=== PATIENT | male | born 1935 | race Caucasian/White ===

== ENCOUNTER → 2017-10-19 | Outpatient (CLI) | payer MEDICARE, OTHER ==
--- NOTE | 2017-10-25 09:37 | Diagnostic Imaging Report ---
History: Neck pain, muscle spasms, mid cervical disc disorder with radiculopathy Comparison studies: None Technique: Sagittal T1, T2 and IR, axial T2 and axial gradient echo Intravenous contrast: None Findings: Alignment: Mild straightening is seen within the mid cervical spine No scoliosis. Cervicomedullary junction: Incidental note is made of a mildly ectatic left vertebral artery measuring 6 mm. Soft tissues: No T2 hyperintense inflammatory changes. Spinal cord: Normal in size and signal from the foramen magnum through T4 Vertebrae: No fractures, infection or neoplasm. Degenerative changes: C2-C3: No abnormalities. C3-C4: Congenital fusion noted within the vertebral body and in the right posterior elements C4-C5: Loss of T2 signal and disc height. Asymmetric bulging disc with 1.9 mm a posterior mass effect. Hypertrophied ligamentum flavum. Resulting moderate narrowing of the spinal canal. Severe narrowing of the right neural foramen. Moderate narrowing of the left neural foramen. C5-C6: Loss of T2 signal. Left asymmetric bulging disc with 2 mm of posterior mass effect. Hypertrophy of the ligament of flavum. Mild to moderate narrowing of the spinal canal. Moderate right foraminal narrowing.. C6-C7: Loss of T2 signal and disc height. Left asymmetric bulging disc, with 3.6 mm of posterior mass effect. Mild narrowing of the spinal canal. Mild bilateral foraminal narrowing. C7-T1: No abnormalities. IMPRESSION: 1. 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 2. 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 Tomer Grissom M.D. on 10/25/2017 9:33 AM
== END ==
LOC: MRI 14:55
PROVIDERS: ATTEND Neurological Surgery
DX: M50.121 Cervical disc disorder at C4-C5 level with radiculopathy (principal)
CPT/HCPCS: 72141

== ENCOUNTER 2021-01-08 15:25 | Emergency (ER) | payer MEDICARE, OTHER ==
[~2021-01-08] VITALS: Ht 172.7 cm; Wt 63.5 kg
== END 2021-01-08 18:00 | disposition home or self-care (01) ==
LOC: ER 16:00
DX: S61.212A Laceration without foreign body of right middle finger without damage to nail, initial encounter (principal); W55.01XA Bitten by cat, initial encounter; Y92.008 Other place in unspecified non-institutional (private) residence as the place of occurrence of the external cause
CPT/HCPCS: 99283

== ENCOUNTER → 2021-02-26 | Emergency (ER) | payer MEDICARE, OTHER ==
[~2021-02-26] VITALS: Ht 172.7 cm; Wt 63.5 kg
== END | disposition home or self-care (01) ==
LOC: ER 15:07
DX: S09.8XXA Other specified injuries of head, initial encounter (principal); M54.2 Cervicalgia; Y93.84 Activity, sleeping; Y92.003 Bedroom of unspecified non-institutional (private) residence as the place of occurrence of the external cause
CPT/HCPCS: 70450; 72125; 99283

== ENCOUNTER 2021-04-30 22:48 | Emergency (ER) | payer MEDICARE, OTHER ==
[~2021-04-30] VITALS: Ht 172.7 cm; Wt 63.5 kg
[2021-04-30] MEDS ORDERED: AUGMENTIN 875-1 EACH PO (23:11)
[2021-04-30] MEDS ORDERED: RABIES VAC,PF CHICK-EMB CELL 2.5/KIT ONE (23:12)
[2021-04-30] MEDS ORDERED: RABIES VAC,PF CHICK-EMB CELL 2.5/KIT IM ONE (23:15)
[2021-05-01 02:18] VITALS: BP 129/65
== END 2021-05-01 01:35 | disposition home or self-care (01) ==
LOC: ER 23:07
DX: S51.831A Puncture wound without foreign body of right forearm, initial encounter (principal); W55.01XA Bitten by cat, initial encounter; Y92.008 Other place in unspecified non-institutional (private) residence as the place of occurrence of the external cause
CPT/HCPCS: 99284

== ENCOUNTER 2021-05-07 20:50 | Emergency (ER) | payer MEDICARE, OTHER ==
[~2021-05-07] VITALS: Ht 172.7 cm; Wt 63.5 kg
[~2021-05-07 20:50] MED LIST: AUGMENTIN 875-1 EACH PO
[2021-05-07] MEDS ORDERED: RABIES VAC,PF CHICK-EMB CELL 2.5/KIT IM ONE (21:30)
== END 2021-05-07 22:45 | disposition home or self-care (01) ==
LOC: ER 21:27
DX: Z29.14 Encounter for prophylactic rabies immune globulin (principal)
CPT/HCPCS: 99282

== ENCOUNTER 2021-07-08 15:29 | Emergency (ER) | payer MEDICARE, OTHER ==
[2021-07-08] MEDS ORDERED: AUGMENTIN 875-1 EACH PO (17:11)
[2021-07-08] MEDS ORDERED: TETANUS/DIPHTHERIA TOX ADULT 0.5 ML SYR IM ONE (18:45)
[2021-07-08] MEDS ORDERED: TETANUS/DIPHTHERIA TOX ADULT 0.5 ML SYR ONE (18:46)
== END 2021-07-08 18:50 | disposition home or self-care (01) ==
LOC: ER 17:15
DX: S50.872A Other superficial bite of left forearm, initial encounter (principal); W55.01XA Bitten by cat, initial encounter; Y92.008 Other place in unspecified non-institutional (private) residence as the place of occurrence of the external cause
CPT/HCPCS: 90714; 99282

== ENCOUNTER 2022-06-04 02:05 | Emergency (ER) | payer MEDICARE, OTHER ==
[~2022-06-04] VITALS: Ht 172.7 cm; Wt 63.5 kg
== END 2022-06-04 02:18 | disposition home or self-care (01) ==
LOC: ER 02:09
DX: S61.452A Open bite of left hand, initial encounter (principal); W55.01XA Bitten by cat, initial encounter; Y92.89 Other specified places as the place of occurrence of the external cause
CPT/HCPCS: 99282